=== PATIENT | female | born 2000 | race Caucasian/White ===

== ENCOUNTER 2019-12-13 10:47 | Emergency (ER) | payer BC ==
[2019-12-13] MEDS ORDERED: hydrOXYzine HCL TAB* 25 MG PO ONE (12:51)
[2019-12-13 13:36] VITALS: BP 115/69
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
== END 2019-12-13 13:35 | disposition home or self-care (01) ==
LOC: ED 10:47
DX: F41.9 Anxiety disorder, unspecified (principal); Z87.891 Personal history of nicotine dependence; F32.9 Major depressive disorder, single episode, unspecified; F50.9 Eating disorder, unspecified
CPT/HCPCS: 99284; A9270-GY

== ENCOUNTER 2020-03-02 18:40 | Inpatient (IN) ==
[2020-03-02 19:52] LABS: ABS Eosinophils 0.2 10^3/ul (0-0.6); ABS Lymphocytes 1.8 10^3/ul (1.0-4.8); ABS Monocytes 0.5 10^3/ul (0-0.8); Eosinophil % 3.7 %; Hematocrit 40 % (35-47); Lymphocyte % 34.2 %; Mean Corpuscular HGB Conc 35 g/dL (31-36); Mean Corpuscular Hemoglobin 32 pg (27-31); Mean Corpuscular Volume 90 fL (80-97); Mean Platelet Volume 8.1 fL (7.4-10.4); Platelet Count 254 10^3/uL (150-450); Red Cell Distribution Width 12 % (10-15); White Blood Count 5.3 10^3/uL (3.5-10.8)
[2020-03-02 20:04] LABS: Urine Appearance Turbid; Urine Bacteria 1+ (Absent); Urine Bilirubin Negative (Negative); Urine Blood Negative (Negative); Urine Color Amber; Urine Glucose Negative (Negative); Urine Ketones Negative (Negative); Urine Nitrite Negative (Negative); Urine Protein Negative (Negative); Urine Red Blood Cell Absent (Absent); Urine Specific Gravity 1.032 (1.010-1.030); Urine Squamous Epithelial Cell Present (Absent); Urine Urobilinogen Negative (Negative); Urine White Blood Cell Absent (Absent)
[2020-03-02 20:08] LABS: ALT 9 U/L (7-52); AST 16 U/L (13-39); Albumin 4.7 g/dL (3.2-5.2); Albumin/Globulin Ratio 1.8 (1-3); Alkaline Phosphatase 61 U/L (34-104); Anion Gap 6 mmol/L (2-11); BUN/Creatinine Ratio 14.3 (8-20); Blood Urea Nitrogen 13 mg/dL (6-24); CO2 Carbon Dioxide 29 mmol/L (22-32); Calcium 9.6 mg/dL (8.6-10.3); Chloride 105 mmol/L (101-111); EGFR African American 95.4 (>60); EGFR Non-African American 78.8 (>60); Globulin 2.6 g/dL (2-4); Glucose 93 mg/dL (70-100); Potassium 3.9 mmol/L (3.5-5.0); Sodium 140 mmol/L (135-145); Total Protein 7.3 g/dL (6.4-8.9)
[2020-03-02 20:17] LABS: Urine Benzodiazepine Screen None Detected (None Detect); Urine Opiates Screen None Detected (None Detect)
[2020-03-02 20:18] LABS: Acetaminophen < 15 mcg/mL; Alcohol, S < 10 mg/dL (<10); Salicylate < 2.50 mg/dL (<30)
[2020-03-02 20:31] LABS: TSH (Thyroid Stimulating Horm) 3.36 mcIU/mL (0.34-5.60)
[2020-03-03] MEDS ORDERED: Al Hydrox/Mg Hydrox/Simet LIQ 30 ML UDC PO PRN (02:13)
[2020-03-03] MEDS ORDERED: Venlafaxine XR 75 mg PO SCH (09:00)
[2020-03-03] MEDS ORDERED: Vitamin THERAPEUTIC TAB PO SCH (09:00)
[2020-03-03 09:04] VITALS: BP 129/78
[2020-03-03] MEDS ORDERED: Venlafaxine XR 75 mg PO ONE (12:44)
== END 2020-03-03 13:10 | disposition home or self-care (01) | DRG 754 ==
LOC: ED 18:40 → BSU 03-03
PROVIDERS: ADMIT Psychiatry & Neurology Psychiatry; ATTEND Psychiatry & Neurology Psychiatry